=== PATIENT | female | born 1930 | race Caucasian/White ===

== ENCOUNTER → 2016-05-05 | Outpatient (CLI) | payer OTHER, BC | LOC: FIMAGING 12:46 | DX: Z12.31 Encounter for screening mammogram for malignant neoplasm of breast (principal) | CPT/HCPCS: G0202 ==

== ENCOUNTER → 2016-05-11 | Outpatient (CLI) | payer OTHER, BC | LOC: BMCIMAGING 12:46 | PROVIDERS: ATTEND Internal Medicine Cardiovascular Disease | DX: I51.7 Cardiomegaly (principal); I77.1 Stricture of artery ==

== ENCOUNTER 2016-06-25 06:12 | Day surgery (SDC) | payer OTHER, BC ==
[2016-06-25] MEDS ORDERED: NS 1,000 ML IV ONE (06:17)
[2016-06-25] MEDS ORDERED: FAMOTIDINE 20 MG TAB PO ONE (06:17)
[2016-06-25] MEDS ORDERED: diphenhydrAMINE 25 MG CAP PO ONE ×2 (06:17→06:40)
[2016-06-25] MEDS ORDERED: DIAZEPAM 5 MG TAB PO ONE (06:17)
[2016-06-25] MEDS ORDERED: ASPIRIN EC 325 MG TAB PO ONE ×2 (06:17→06:40)
--- NOTE | 2016-06-25 06:39 | CPEKG ---
Heart Rate: 60 RR Interval: 1000 P-R Interval: 192 QRSD Interval: 92 QT Interval: 416 QTC Interval: 416 P Deweese: 21 QRS Deweese: 4 T Wave Deweese: 26 EKG Severity - OTHERWISE NORMAL ECG - EKG Impression: SINUS RHYTHM EKG Impression: ATRIAL PREMATURE COMPLEX Electronically Signed By: Juliette Lambert 25-Jun-2016 11:39:13
[2016-06-25] MEDS ORDERED: FAMOTIDINE 20 MG TAB ONE (06:40)
[2016-06-25] MEDS ORDERED: DIAZEPAM 5 MG TAB ONE (06:41)
[2016-06-25 06:50] LABS: % IMMATURE GRANULYOCYTES 0.2 % (0.0-1.1); ABSOLUTE IMMATURE GRANULOCYTES 0.01 10^3/uL (0.00-0.10); ADD DIFF? NO; ADD MORPH? NO; ADD SCAN? NO; ATYPICAL LYMPHOCYTE FLAG 10 (0-99); FRAGMENT RBC FLAG 0 (0-99); HEMATOCRIT 34.7 % (38.0-47.0); HEMOGLOBIN 11.4 g/dL (12.6-16.3); LEFT SHIFT FLG 0 (0-99); LIPEMIA HEMOLYSIS FLAG 80 (0-99); MEAN CELL HEMOGLOBIN 29.8 pg (27.9-34.1); MEAN CELL HEMOGLOBIN CONCENTR. 32.9 g/dL (32.4-36.7); MEAN CELL VOLUME 90.6 fL (81.5-99.8); MEAN PLATELET VOLUME 10.4 fL (8.7-11.7); PLATELET CLUMPS FLAG 0 (0-99); PLATELET COUNT 273 10^3/uL (150-400); RED BLOOD CELL COUNT 3.83 10^6/uL (4.18-5.33); RED CELL DISTRIBUTION WIDTH 14.4 % (11.5-15.2)
[2016-06-25 07:00] LABS: INR 1.09 (0.83-1.16)
[2016-06-25 07:15] LABS: ANION GAP 11 mEq/L (8-16); CALCIUM 10.3 mg/dL (8.5-10.4); CARBON DIOXIDE 24 mEq/l (22-31); CHLORIDE 110 mEq/L (97-110); CHOLESTEROL 137 mg/dL (140-220); CHOLESTEROL/HDL RATIO 5.96 RATIO (1.00-4.44); GLOMERULAR FILTRATION RATE 53; GLUCOSE 88 mg/dL (70-100); HIGH DENSITY LIPOPROTEIN 23 mg/dL (40-85); LDL/HDL RATIO 2.74 RATIO (1.00-3.22); LOW DENSITY LIPOPROTEIN 63 mg/dL (80-100); MAGNESIUM 1.8 mg/dL (1.6-2.3); NON-HIGH DENSITY LIPOPROTEIN 114 mg/dL (90-129); SODIUM 145 mEq/L (134-144); TRIGLYCERIDE 256 mg/dL (35-135); VERY LOW DENSITY LIPOPROTEINS 51 mg/dL (8-25)
[2016-06-25] MEDS ORDERED: LIDOCAINE 1% 30 ML SDV ONE (07:24)
[2016-06-25] MEDS ORDERED: IOPAMIDOL (ISOVUE-370) 150 ML BTL IV ONE (07:24)
[2016-06-25] MEDS ORDERED: fentaNYL 100 MCG/2 ML INJ ONE (07:24)
[2016-06-25] MEDS ORDERED: MIDAZOLAM 2 MG/2 ML VIAL ONE (07:24)
[2016-06-25] MEDS ORDERED: ADENOSINE 90 MG/30 ML VIAL IV ONE (08:37)
[2016-06-25] MEDS ORDERED: BIVALIRUDIN 250 MG/5 ML VIAL IV ONE (08:37)
[2016-06-25] MEDS ORDERED: OXYCODONE/APAP 5/325 TAB PO PRN (09:07)
[2016-06-25] MEDS ORDERED: NITROGLYCERIN 0.4 MG BTL SL PRN (09:07)
[2016-06-25] MEDS ORDERED: ONDANSETRON 4 MG/2 ML VIAL IVP PRN (09:07)
[2016-06-25] MEDS ORDERED: HYDROCODONE/APAP 5/325 TAB PO PRN (09:07)
[2016-06-25] MEDS ORDERED: ATROPINE SULFATE 1 MG/10 ML SYR IVP PRN (09:07)
--- NOTE | 2016-06-25 10:42 | CPIP ---
[f rep st] INVASIVE CARDIAC PROCEDURE DATE OF PROCEDURE: 06/25/2016 PROCEDURE PERFORMED: 1. Cardiac catheterization. 2. Left coronary angiography. 3. Right coronary angiography. 4. Left ventriculogram. 5. Right common femoral artery angiography. INDICATION FOR PROCEDURE: The patient is a pleasant 85-year-old female with a known history of bria nary artery disease, with PCI to the mid-LAD in August 2015. She presented to my office yesterday wit h symptoms consistent with unstable angina. She described 4 distinct episodes, all which occurred w ith rest, of 6 out of 10 substernal chest pain radiating to the left shoulder, jaw, and down her lef t arm, that was alleviated after 2 sublingual nitroglycerin. Two of these episodes awoke her from s leep. Two of the episodes occurred while sitting in a chair. These episodes occurred between last Tuesday and this past Tuesday. She had no further events. In the setting of known coronary artery disease, with PCI to the mid-LAD in August 2015, coupled with the fact that her nuclear stress test prior to her mid-LAD stent was normal, the decision was made t o pursue diagnostic left heart catheterization. The patient has been compliant with her medications , including dual-antiplatelet therapy with aspirin and Plavix. Her blood pressure is well controlle d. PROCEDURE: After informed consent was obtained, the patient was brought to the cardiac catheterizat ion lab, where she was prepped and draped in a sterile fashion. Using 1% lidocaine, the right groin was anesthetized. Using the modified Seldinger technique, a 6-Persian catheter was placed into the right common femoral artery without complication. A JL4 catheter was used to take images of the lef t coronary anatomy in multiple projections. JL4 catheter was exchanged over a guidewire for a JR4 c atheter. JR4 catheter was used to take images of the right coronary artery in multiple projections. JR4 catheter was exchanged over a guidewire for angled pigtail catheter. Angled pigtail catheter was used to cross the aortic valve. LVEDP was assessed. Left ventriculogram was performed. LVEDP was assessed. Aortic valve pullback gradient was assessed. Angled pigtail catheter was removed ove r a guidewire without complications. Imaging of the right common femoral artery catheter placement site was obtained. FINDINGS: 1. Left main: Normal size and caliber. It bifurcates into the left anterior descending and left c ircumflex coronary artery. There is no evidence of coronary disease within the left main. 2. Left anterior descending: The left anterior descending is a moderate-caliber vessel that wraps around the LV apex. There is a moderate to large 1st diagonal branch. There are 2 moderate-sized s econd and third diagonal branches, as well. There is a 20% stenosis that is focal just proximal to the origin of the large first diagonal branch. The mid-LAD stent is widely patent. There are mild luminal irregularities within the distal LAD. 3. Left circumflex artery is a nondominant vessel, with a moderate-sized first obtuse marginal bran ch. There are mild luminal irregularities within the LAD. 4. Right coronary artery is a dominant vessel. It bifurcates into PDA and PLV branch. There is no evidence of coronary disease within the right coronary artery. 5. In reviewing her images, there is a focal stenosis just proximal to the first diagonal branch in the proximal LAD. Given her symptoms of unstable angina, will pursue fractional flow reserve to as sess hemodynamic significance. I have reviewed these images with my interventional colleague, Dr. Mariella royal. The patient underwent FFR to the proximal LAD. There is no evidence of hemodynamically si gnificant stenosis. CONCLUSION: 1. Patent stent to the left anterior descending. 2. 20% proximal stenosis of the left anterior descending just proximal to the takeoff of the first diagonal branch. 3. Mild luminal irregularities within the circumflex vessel. 4. Normal left ventricular function with elevated left ventricular end-diastolic pressure of 26 mmH g. PLAN: 1. Patient will recover in the CVICU. 2. Post left heart catheterization instructions have been provided. 3. Patient will be discharged home on current medications. 4. Patient will be scheduled for outpatient followup visit. /[id number]/MODL
== END 2016-06-25 15:52 | disposition home or self-care (01) ==
LOC: FCATH 06:12
PROVIDERS: ATTEND Internal Medicine Cardiovascular Disease
DX: I25.110 Atherosclerotic heart disease of native coronary artery with unstable angina pectoris (principal); I10 Essential (primary) hypertension; I42.1 Obstructive hypertrophic cardiomyopathy; E78.5 Hyperlipidemia, unspecified; K21.9 Gastro-esophageal reflux disease without esophagitis; M85.80 Other specified disorders of bone density and structure, unspecified site; G47.00 Insomnia, unspecified; E55.9 Vitamin D deficiency, unspecified; Z95.5 Presence of coronary angioplasty implant and graft; Z96.659 Presence of unspecified artificial knee joint
CPT/HCPCS: 93005; 93458; 93571; C1769; C1887; C1760; J0153; J0583; J1644; J2250; J3010; Q9967

== ENCOUNTER 2017-03-28 20:00 | Emergency (ER) | payer OTHER, BC ==
[2017-03-28 20:10] VITALS: TEMP 99.7
--- NOTE | 2017-03-28 20:35 | EDPHY ---
H & P Stated Complaint: sob, freq prod cough, fatigue-dx flu A 2/15 worse Time Seen by Provider: 03/28/17 20:35 - Medical/Surgical History Hx Asthma: No Hx Chronic Respiratory Disease: No Hx Diabetes: No Hx Cardiac Disease: Yes Hx Renal Disease: No Hx Cirrhosis: No Hx Alcoholism: No Hx HIV/AIDS: No Hx Splenectomy or Spleen Trauma: No Other PMH: HTN/BACK PROBLEMS, MACULAR DEGENERATION,. cardiomyopathy, card stent 2015 - Social History Smoking Status: Never smoked Constitutional: Initial Vital Signs Temperature (C) 37.6 C 03/28/17 20:06 Heart Rate 60 03/28/17 20:06 Respiratory Rate 18 03/28/17 20:06 Blood Pressure 146/64 H 03/28/17 20:06 O2 Sat (%) 90 L 03/28/17 20:06 O2 Delivery Mode Nasal Cannula O2 (L/minute) 2 Allergies/Adverse Reactions: No Known Allergies Allergy (Unverified 03/28/17 20:06) Home Medications: Medication Instructions Recorded ALPRAZolam [Xanax 0.25 MG (*)] 0.25 mg PO HS 01/16/14 Acetaminophen [Tylenol ES 500 mg 500 mg PO BID PRN 01/16/14 (*)] C/E/Zn/Cu/OM3/DHA/EPA/LUT/ZEAX 1 each PO BID 01/16/14 [Preservision Areds 2 Softgel] Cholecalciferol Vit D3 [Vitamin D3 1,000 units PO DAILY 01/16/14 (*)] Glucosamine/Chondroitin 1 each PO DAILY 01/16/14 [Glucosamine/Chondroitin (*)] amLODIPine BESYLATE [Norvasc 5 mg 5 mg PO HS 01/16/14 (*)] Aspirin EC [Aspirin EC 81 mg (*)] 81 mg PO HS 08/18/15 Cyanocobalamin [Vitamin B12 (*)] 1,000 mcg PO DAILY 08/18/15 Fenofibrate [Lofibra] 160 mg PO HS 08/18/15 Nitroglycerin [Nitrostat 0.4 mg 0.4 mg SL PRN PRN #0 btl 08/22/15 (*)] Atorvastatin Calcium [Lipitor 40 40 mg PO DAILY 06/25/16 mg (*)] Clopidogrel Bisulfate [Plavix (*)] 75 mg PO DAILY 06/25/16 Fluticasone Nasal [Flonase Nasal 2 sprays EACHNARE DAILY PRN 06/25/16 [place] (RX)] Nebivolol HCl [Bystolic 5 mg (*)] 5 mg PO DAILY 06/25/16 Medical Decision Making ED Course/Re-evaluation: CHIEF COMPLAINT: Cough, diagnosed with the flu HISTORY OF PRESENT ILLNESS: The patient is an 86 y/o female with a history of a cardiac stent (2015) and hypertension complaining of a cough after being diagnosed with the flu on , 4 days ago. Since being diagnosed her persistent cough has worsened. She is also coughing up yellow/brown sputum. When she coughs up the sputum her cough stops for several minutes. She has been taking Robitussin for her cough. Normally uses 2L room air oxygen at night, but she has been using it during the day since being diagnosed with the flu. REVIEW OF SYSTEMS: A 10 point review of systems was performed and is negative with the exception of the elements mentioned in the history of present illness. PHYSICAL EXAM: HR, BP, O2 Sat, RR. Temp noted General Appearance: Alert, well hydrated, appropriate, and non-toxic appearing. Head: Atraumatic without scalp tenderness or obvious injury Eyes: Pupils equal, round, reactive to light and accommodation, EOMI, no trauma , no injection. Ears: Clear bilaterally, no perforation, normal landmarks Nose: Atraumatic, no rhinorrhea, clear. Throat: Mucus membranes moist. Neck: Supple, nontender, no lymphadenopathy. Respiratory: Few coarse rhonchi throughout. No retractions, no distress, no wheezes, and no accessory muscle use. Cardiovascular: Regular rate and rhythm, no murmurs, rubs, or gallops. Bilateral carotid, radial, dorsalis pedis, and posterior tibial pulses intact. Good capillary refill all extremities. Gastrointestinal: Abdomen is soft, nontender, non-distended, no masses, no rebound, no guarding, no peritoneal signs. Musculoskeletal: Normal active ROM of all extremities, atraumatic. Neurological: Alert, appropriate, and interactive. Non-focal neuro. Skin: No rashes, good turgor, no nodules on palpation. Past medical history: Hypertension, macular degeneration, cardiomyopathy Past surgical history: Cardiac stent (2016) Family history: Denies Social history: Lives at the [facility], retired DIFFERENTIAL DIAGNOSIS: The differential diagnosis for the patient's cough included but was not limited to pneumonia, urinary tract infection, viral syndrome, meningitis, and sepsis. MEDICAL DECISION MAKING: The patient is an 86 y/o female with a history of a cardiac stent (2016) and hypertension presenting with a persistent cough after being diagnosed with the flu on 03/24/17, 4 days ago. She is normally on 2L of room air at home. At triage her O2Sat was 90%, but when she was brought to the room and placed on 2L room air her O2Sat became 95%. On exam she has a few coarse rhonchi throughout. 10mg PO Decadron and DuoNeb administered. Reassessed patient, she is feeling better after Decadron and the DuoNeb. I have prescribed her Vicodin and an albuterol inhaler for her cough. Return precautions provided; patient is comfortable with this plan. - Data Points Medications Given: Discontinued Medications Hydrocodone Bitart/Acetaminophen ([place] 5/325mg Prepack#6) 1 btl TAKEHOME EDNOW ONE Stop: 03/28/17 20:44 Last Admin: 03/28/17 20:53 Dose: 1 btl Albuterol Sulfate (Proventil Inh Prepack) 1 mdi TAKEHOME EDNOW ONE Stop: 03/28/17 20:43 Last Admin: 03/28/17 20:52 Dose: 1 mdi Albuterol/Ipratropium (Duoneb) 3 ml IH EDNOW ONE Stop: 03/28/17 20:43 Last Admin: 03/28/17 20:51 Dose: 3 ml Dexamethasone (Decadron Injection) 10 mg PO EDNOW ONE Stop: 03/28/17 20:43 Last Admin: 03/28/17 20:53 Dose: 10 mg Departure - Departure Disposition: Home, Routine, Self-Care Clinical Impression: Cough, Influenza Condition: Good Instructions: Influenza (ED), Acute Cough (ED) Additional Instructions: 1. Use the Albuterol inhaler as prescribed. 2. Take Vicodin as prescribed for you cough. 3. Follow up with primary care physician in 3-4 days if not improving. 4. Return to the Emergency Department for uncontrollable fever, shortness of breath, or other worsening of condition. Referrals: Ant Quiroz MD [Primary Care Provider] - As per Instructions Report Scribed for: Jim Burgos Report Scribed by: Nehal Mccarty Date of Report: 03/28/17 Time of Report: 20:38
[2017-03-28] MEDS ORDERED: ALBUTEROL INH PREPACK MDI TAKEHOME ONE (20:42)
[2017-03-28] MEDS ORDERED: DEXAMETHASONE 10 MG/ML VIAL PO ONE (20:42)
[2017-03-28] MEDS ORDERED: IPRATROPIUM/ALBUTEROL 3 ML DEYVIAL IH ONE (20:42)
[2017-03-28] MEDS ORDERED: HYDROCOD/APAP 5/325 PREPACK#6 BTL TAKEHOME ONE (20:43)
[2017-03-28 20:58] VITALS: BP 128/59; PULSE 54; RESP 20; O2SAT 94
== END 2017-03-28 21:25 | disposition home or self-care (01) ==
DX: J11.1 Influenza due to unidentified influenza virus with other respiratory manifestations (principal); I10 Essential (primary) hypertension; Z79.82 Long term (current) use of aspirin; Z95.5 Presence of coronary angioplasty implant and graft
CPT/HCPCS: 99283; J1100

== ENCOUNTER → 2017-05-18 | Outpatient (CLI) | payer OTHER, BC | LOC: FIMAGING 12:47 | PROVIDERS: ATTEND Internal Medicine | DX: Z12.31 Encounter for screening mammogram for malignant neoplasm of breast (principal) ==

== ENCOUNTER → 2017-07-20 | Outpatient (CLI) | payer OTHER, BC | LOC: FIMAGING 07:36 | PROVIDERS: ATTEND Physical Medicine & Rehabilitation | DX: M48.061 Spinal stenosis, lumbar region without neurogenic claudication (principal); M51.36 Other intervertebral disc degeneration, lumbar region; M51.35 Other intervertebral disc degeneration, thoracolumbar region; M51.34 Other intervertebral disc degeneration, thoracic region; M99.74 Connective tissue and disc stenosis of intervertebral foramina of sacral region; M41.86 Other forms of scoliosis, lumbar region ==

== ENCOUNTER → 2017-07-29 | Outpatient (CLI) | payer OTHER, BC | LOC: BMCIMAGING 10:36 | PROVIDERS: ATTEND Physical Medicine & Rehabilitation | DX: Z13.820 Encounter for screening for osteoporosis (principal); M85.89 Other specified disorders of bone density and structure, multiple sites ==

== ENCOUNTER → 2018-02-03 | Outpatient (CLI) | payer OTHER, BC | LOC: BHFA 14:45 | PROVIDERS: ATTEND Internal Medicine Cardiovascular Disease | DX: I42.2 Other hypertrophic cardiomyopathy (principal) ==

== ENCOUNTER → 2018-05-01 | Outpatient (CLI) | payer OTHER, BC | LOC: BHFA 13:30 | PROVIDERS: ATTEND Internal Medicine Cardiovascular Disease | DX: R07.9 Chest pain, unspecified (principal); I25.10 Atherosclerotic heart disease of native coronary artery without angina pectoris | CPT/HCPCS: 78452; 93017; A9500; J2785 ==

== ENCOUNTER → 2018-05-23 | Outpatient (CLI) | payer OTHER, BC | LOC: BMCIMAGING 12:41 | PROVIDERS: ATTEND Internal Medicine | DX: Z12.31 Encounter for screening mammogram for malignant neoplasm of breast (principal) ==